=== PATIENT | male | born 1990 | race Caucasian/White ===

== ENCOUNTER 2018-08-07 17:53 | Emergency (ER) | payer MEDICAID ==
[~2018-08-07] VITALS: Ht 165.1 cm; Wt 73.5 kg
--- NOTE | 2018-08-07 18:10 | NUR ---
Pt ambulatory to room from lobby with steady gait,
--- NOTE | 2018-08-07 18:20 | NUR ---
Pt in restroom at this time.
--- NOTE | 2018-08-07 18:29 | NUR ---
First contact with pt. Dr. Kumar at bedside to evaluate pt. Pt c/o cough with blood tinged sputum x2 days. Pt also c/o drainage from penis x1 week. Pt's lungs wheezy and diminished throughout. Pt positioned for comfort in bed, all safety measures observed.
[2018-08-07] MEDS ORDERED: ALBU8.5H8 INH (18:32)
[2018-08-07] MEDS ORDERED: LISI40TA PO (18:32)
[2018-08-07] MEDS ORDERED: CEFTRIAXONE 250 MG ONE (18:47)
[2018-08-07] MEDS ORDERED: IBUPROFEN 200 MG TABLET ONE (18:47)
[2018-08-07] MEDS ORDERED: AZITHROMYCIN 250 MG TABLET ONE (18:47)
[2018-08-07] MEDS ORDERED: ACETAMINOPHEN 500 MG TABLET ONE (18:48)
[2018-08-07] MEDS ORDERED: CEFTRIAXONE 250 MG IM ONE (19:00)
[2018-08-07] MEDS ORDERED: AZITHROMYCIN 250 MG TABLET PO ONE (19:00)
[2018-08-07] MEDS ORDERED: ALBUTEROL/IPRATROPIUM 2.5MG/0.5MG, 3 ML NPPB ONE (19:00)
[2018-08-07] MEDS ORDERED: ACETAMINOPHEN 500 MG TABLET PO ONE (19:00)
[2018-08-07] MEDS ORDERED: IBUPROFEN 200 MG TABLET PO ONE (19:00)
--- NOTE | 2018-08-07 19:05 | NUR ---
report received from JOSIANE Jessica. care assumed at this time. all monitors in place. pt is a&o, anxious but resps are even and unlabored. pts symptoms discussed with EDMD José MD declines to order troponin at this time.
[2018-08-07 19:06] LABS: BASOPHILS # (AUTO) 0.06 x10^3/uL (0-0.1); BASOPHILS % (AUTO) 1 % (0-1); EOSINOPHILS # (AUTO) 0.81 x10^3/uL (0-0.4); EOSINOPHILS % (AUTO) 7 % (1-7); LYMPHOCYTES # (AUTO) 2.71 x10^3/uL (1-3.4); LYMPHOCYTES % (AUTO) 22 % (22-44); MD NO; MEAN CORPUSCULAR HEMOGLOBIN 32.6 pg (27.5-34.5); MEAN CORPUSCULAR HGB CONC 34.2 g/dL (33.2-36.2); MEAN CORPUSCULAR VOLUME 95.3 fL (81-97); MEAN PLATELET VOLUME 8.3 fL (7.4-10.4); MONOCYTES # (AUTO) 0.85 x10^3/uL (0.2-0.8); MONOCYTES % (AUTO) 7 % (2-9); NEUTROPHILS # (AUTO) 8.16 x10^3/uL (1.8-6.8); NEUTROPHILS % (AUTO) 65 % (42-75); PLATELET COUNT 272 x10^3/uL (130-400); RED BLOOD COUNT 5.04 x10^6/uL (4.38-5.82); RED CELL DISTRIBUTION WIDTH 13.2 % (9.4-14.8)
[2018-08-07 19:13] LABS: ALBUMIN 3.8 g/dL (3.4-5.0); ANION GAP 5 mmol/L (5-15); CALCIUM 8.9 mg/dL (8.5-10.1); CHLORIDE 111 mmol/L (98-107); CREATININE 1.07 mg/dL (0.7-1.3)
[2018-08-07] MEDS ORDERED: ALBUTEROL/IPRATROPIUM 2.5MG/0.5MG, 3 ML ONE (19:23)
[2018-08-07 19:30] LABS: RAPID INFLUENZA A Negative (Negative); RAPID INFLUENZA B Negative (Negative)
--- NOTE | 2018-08-07 19:46 | NUR ---
PT RESTING ON GURNEY, REPORTS SYMPTOMS IMPROVED S/P BREATHING TX. PT A&O, RESPS EVEN AND UNLABORED, SINUS TACH RATE 110'S ON CARIDAC MONITOR. ALL RESULTS BACK, CHART UP FOR RECHECK. AWAITING MD AND DISPO. Addendum: 08/07/18 at 1948 by GLADIS PT RESTING ON GURJOSH, REPORTS SYMPTOMS IMPROVED S/P BREATHING TX. PT A&O, RESPS EVEN AND UNLABORED, SINUS TACH RATE 110'S ON CARIDAC MONITOR. URINE COLLECTED AND SENT TO LAB, AWAITING RESULTS AND DISPO.
--- NOTE | 2018-08-07 20:05 | NUR ---
pt to be discharged, awaiting paperwork from MD at this time
[2018-08-07 20:35] VITALS: BP 144/86
--- NOTE | 2018-08-07 20:39 | NUR ---
pt given dc instructions and script. pt educated regarding acyclovir rx. pt a&o, resps even and unlabored. pt amb to dc desk with steady gait, nadn at dc.
== END 2018-08-07 20:37 | disposition home or self-care (01) ==
LOC: ED 20:31
DX: J45.41 Moderate persistent asthma with (acute) exacerbation (principal); I10 Essential (primary) hypertension; A60.00 Herpesviral infection of urogenital system, unspecified; J02.9 Acute pharyngitis, unspecified; F17.200 Nicotine dependence, unspecified, uncomplicated
CPT/HCPCS: 36415; 71045; 80048; 82040; 85025; 87400; 87491; 87591; 93005; 94640; 96372; 99284; J0696; J7512; J7620